=== PATIENT | male | born 1975 | race Caucasian/White ===

== ENCOUNTER → 2023-03-14 | Day surgery (SDC) | payer OTHER ==
[~2023-03-14] VITALS: Ht 180.3 cm; Wt 97.5 kg
[~2023-03-14] MED LIST: ERGO500029 PO; LIDOCAINE 2% INJ 100 MG/5 ML SYRINGE As Ordered ONE; MAGN400T2 PO; MELO15TA28 PO; NS 1,000 ML IV ONE; OMEG10002 PO; VITA500T40 PO; propofoL 200 MG/20 ML VIAL As Ordered ONE
[2023-03-14 07:50] VITALS: TEMP 97.3
[2023-03-14 08:10] VITALS: BP 134/89; O2SAT 96
== END | disposition home or self-care (01) ==
LOC: M OPP 06:41
PROVIDERS: ATTEND Surgery
DX: Z12.11 Encounter for screening for malignant neoplasm of colon (principal); Z80.0 Family history of malignant neoplasm of digestive organs; D12.6 Benign neoplasm of colon, unspecified; G47.33 Obstructive sleep apnea (adult) (pediatric); Z99.89 Dependence on other enabling machines and devices; Z87.891 Personal history of nicotine dependence; Z79.1 Long term (current) use of non-steroidal anti-inflammatories (NSAID)